=== PATIENT | female | born 1985 | race Caucasian/White ===

== ENCOUNTER 2018-12-31 00:38 | Emergency (ER) | payer OTHER ==
[~2018-12-31] VITALS: Ht 180.3 cm; Wt 95.3 kg
[2018-12-31 02:53] VITALS: BP 128/62
== END 2018-12-31 02:53 | disposition home or self-care (01) ==
LOC: ER 00:38
DX: O46.91 Antepartum hemorrhage, unspecified, first trimester (principal); Z3A.08 8 weeks gestation of pregnancy